=== PATIENT | male | born 1985 | race African-American/Black ===

== ENCOUNTER 2020-09-05 23:59 | Emergency (ER) | payer SELFPAY ==
[2020-09-06 07:40] VITALS: BP 109/79
--- NOTE | 2020-09-06 07:43 | RADIOLOGY REPORT (SQ) ---
CLINICAL HISTORY: PAIN COMPARISON: None. TECHNIQUE: XR KNEE 4 OR MORE VIEWS 09/06/2020 6:05 AM [employer]LT[employer] TRAINER FINDINGS: There is no fracture. Joint spaces are preserved. Soft tissues are unremarkable. IMPRESSION: No acute osseous findings.
--- NOTE | 2020-09-06 08:17 | ER Document Report ---
HPI - HPI Time Seen by Provider: 09/06/20 08:15 Pain Level: 5 Notes: 35-year-old male presents to the emergency room today today for evaluation of right knee pain after he woke up with some medial aspect swelling, states that he "slept on my knee wrong". Denies any trauma or fall. Patient did not try any [id number]-[id number] medication such as Tylenol or ibuprofen. Has not tried any heat or icing. Denies any prior injury of his right knee. Denies any numbness or tingling down bilateral lower extremities. Unable to bear full weight on knee. Reports pain is 3 out of 5, throbbing achy. Denies fevers, chills, chest pain,palpitations, shortness of breath, dyspnea, nausea, vomiting, diarrhea, abdominal pain, hematuria,blurred vision, double vision, loss of vision, speech changes, LH, dizziness, syncope, headaches, wheezing, ST, URI, neck pain, weakness, bowel or bladder dysfunction, saddle anesthesia, numbness or tingling in bilateral upper or lower extremities equally, muscle paralysis, weakness in bilateral upper or lower extremities equally or rash. Denies IV drug use. Past Medical History - General Information source: Patient - Social History Smoking Status: Current Every Day Smoker Chew tobacco use (# tins/day): No Frequency of alcohol use: Occasional Drug Abuse: None Family History: Reviewed & Not Pertinent Vertical Provider Document - CONSTITUTIONAL Agree With Documented VS: Yes Exam Limitations: No Limitations General Appearance: WD/WN Notes: MEDICATIONS: I agree with the patient medications as charted by the RN. ALLERGIES: I agree with the allergies as charted by the RN. PAST MEDICAL HISTORY/PAST SURGICAL HISTORY: Reviewed and agree as charted by RN. SOCIAL HISTORY: Reviewed and agree as charted by RN. FAMILY HISTORY: No significant familial comorbid conditions directly related to patient complaint EXAM: Reviewed vital signs as charted by RN. PHYSICAL EXAMINATION:reviewed vital signs by RN GENERAL: Well-appearing, well-nourished and in no acute distress. HEAD: Atraumatic, normocephalic. EYES: Pupils equal round and reactive to light, extraocular movements intact, sc dante anicteric, conjunctiva are normal. ENT: Nares patent, oropharynx clear without exudates. Moist mucous membranes. NECK: Normal range of motion, supple without lymphadenopathy LUNGS: Breath sounds clear to auscultation bilaterally and equal. No wheezes rales or rhonchi. HEART: Regular rate and rhythm without murmurs ABDOMEN: Soft, nontender, nondistended abdomen. No guarding, no rebound. No masses appreciated. Musculoskeletal: Normal range of motion, no pitting or edema. No cyanosis. right knee pain with palpation to lateral aspect of knee with noted swelling. negative vickey's sign. anterior and posterior drawer test negative. noted pain with inversion. Dtr + 2 in BLE. Full motor and sensory function to BLE equally. No open wounds. No induration or drainage. Strength 5 out of 5 bilaterally equally. Ankle examination normal. Squeeze test negative. Hip examination normal. Pulses + 2 bilaterally and equally.negative squeeze bilaterally and equally. NEUROLOGICAL: Cranial nerves grossly intact. Normal speech, normal gait. Normal sensory, motor exams PSYCH: Normal mood, normal affect. SKIN: Warm, Dry, normal turgor, no rashes or lesions noted. Course - Re-evaluation Re-evalutation: 09/06/20 08:45 Afebrile vital stable no distress. Nurses notes reviewed. X-ray of right knee negative for any acute fracture dislocation foreign body or effusion. Discussed with patient we will place him in a knee immobilizer and crutches, advised to follow RICE therapy. Take naproxen twice a day with food as needed for pain control. Follow-up with locator specialist within the next 3 days. Elevate above level of heart. After icing today, can switch to heat 20 minutes on 20 minutes off several times a day. All questions and concerns answered by this provider. After performing a Medical Screening Examination, I estimate there is LOW risk for OPEN FRACTURE, COMPARTMENT SYNDROME, DEEP VENOUS THROMBOSIS, ACUTE TENDON RUPTURE, or NEUROVASCULAR INJURY thus I consider the discharge disposition reasonable. I have reevaluated this patient multiple times and no significant life threatening changes are noted. The patient and I have discussed the diagnosis and risks, and we agree with discharging home to closely follow-up with their primary doctor or the referral orthopedist with the understanding that symptoms and presentations can change. We also discussed returning to the Emergency Department immediately if new or worsening symptoms occur. We have discussed the symptoms which are most concerning (e.g., changing or worsening pain, numbness, weakness) that necessitate immediate return - Vital Signs Vital signs: Temp Pulse Resp BP Pulse Ox 97.7 F 77 18 109/79 97 09/06/20 07:36 09/06/20 07:36 09/06/20 07:36 09/06/20 07:36 09/06/20 07:36 - Laboratory Results Critical Laboratory Results Reviewed: No Critical Results - Radiology Results Critical Radiology Results Reviewed: No Critical Results Discharge - Discharge Clinical Impression: Right knee pain Condition: Stable Disposition: HOME, SELF-CARE Instructions: Use of Crutches ([facility]), Ice & Elevation ([facility]), Knee Immobilizing Splint ([facility]), Sprained Knee ([facility]) Additional Instructions: Your x-ray today is negative for any acute fracture, dislocation or foreign body. You were given a knee immobilizer and crutches. Advised to keep knee elevated above level of heart, apply ice 20 minutes on 20 minutes off several times a day and then switch over to heat after a day or so in the same fashion. Follow-up with locator specialist within the next 3 days. Take naproxen, anti-inflammatory, twice a day as needed for pain control with food. Return to the emergency room if you experience any worsening pain, swelling, fever, etc. Return immediately for any new or worsening symptoms. Follow up with primary care provider, call tomorrow to make followup appointment. Prescriptions: Naproxen 500 mg PO BID #20 tablet Forms: Return to Work Referrals: KOFFI NEAL JR, DO [ACTIVE PROVISIONAL STAFF] - Follow up as needed NEHEMIAS PAT MD [COMMUNITY BASED STAFF] - Follow up as needed
== END 2020-09-06 09:06 | disposition home or self-care (01) ==
LOC: ER 23:59
DX: M25.561 Pain in right knee (principal); F17.200 Nicotine dependence, unspecified, uncomplicated
CPT/HCPCS: 99283